=== PATIENT | male | born 1955 | race Caucasian/White ===

== ENCOUNTER 2021-04-19 10:03 | Emergency (ER) | payer MEDICARE, SELFPAY ==
--- NOTE | 2021-04-19 10:10 | ED.URI ---
HPI - URI/Sore Throat General Chief Complaint: Upper Respiratory Infection Stated Complaint: nasal drainage Time Seen by Provider: 04/19/21 10:10 Source: patient and RN notes reviewed History of Present Illness HPI Narrative: Patient is 65-year-old male who presents the urgent care with complaints of nasal drainage that started this morning when he woke up. Patient does not have any other symptoms such as fever, nausea, vomiting. Patient denies of any recent exposures. Patient states he has had a Covid vaccine. Patient has not done anything [id number] for his symptoms. No other acute complaints. 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 No acute distress noted. Patient read the plan of care. Some parts of this dictation were generated by voice recognition software and may contain typographical and/or grammatical inaccuracies. Related Data Home Medications Medication Instructions Recorded Confirmed carvedilol 25 mg PO DAILY 04/19/21 04/19/21 lisinopril-hydrochlorothiazide 20 - 25 tablet PO DAILY 04/19/21 04/19/21 Allergies Allergy/AdvReac Type Severity Reaction Status Date / Time No Known Allergies Allergy Unknown Verified 04/19/21 10:21 Review of Systems Review of Systems: CONSTITUTIONAL: Denies fever, chills, or sweats. EYES: Denies visual changes, redness, or discharge. ENT: Denies congestion, sore throat, or otalgia. Reports of rhinorrhea and postnasal drainage. CARDIOVASCULAR: Denies chest pain, palpitations, or edema. RESPIRATORY: Denies cough or dyspnea. GASTROINTESTINAL: Denies abdominal pain, nausea, vomiting, or diarrhea. GENITOURINARY: Denies dysuria or hematuria. SKIN: Denies rash or itching. MUSCULOSKELETAL: Denies back pain, joint pain, or myalgia. NEUROLOGIC: Denies headache, numbness, or weakness. All other systems reviewed are negative, except as documented in HPI. PMFSH Comments At the time of my signature, I reviewed and agree with the nursing past medical, surgical, social, and family history. There is no relevant family history pertinent to the patient complaint. Exam Narrative: GENERAL: This is a well-nourished, well-developed patient, in no apparent distress. HEAD: normocephalic, atraumatic. EYES: PERRL. Sclera clear/white. Vision is grossly intact. EARS: External ears normal, auditory canals clear and without drainage, TMs normal without perforation. Hearing grossly intact. NOSE: External nose normal with no obvious nasal discharge, nares without redness, clear rhinorrhea. THROAT: Mucous membranes moist, posterior pharynx clear. Mild postnasal drainage NECK: Neck supple CARDIOVASCULAR: Regular rate and rhythm without murmurs, gallops, or rubs. RESPIRATORY: Clear to auscultation. Breath sounds equal bilaterally. No wheezes, rales, or rhonchi. SKIN: warm, intact with no suspicious lesions or rash, good texture and turgor. NEURO: awake, alert, and oriented to person, place and time. There were no obvious focal neurologic abnormalities. EXTREMITIES: No clubbing, cyanosis, or edema. Course Vital Signs Vital signs: Vital Signs Temperature 99.1 F 04/19/21 10:23 Pulse Rate 76 04/19/21 10:23 Respiratory Rate 18 04/19/21 10:23 Blood Pressure 173/87 H 04/19/21 10:23 Pulse Oximetry 99 04/19/21 10:23 Temperature 99.1 F 04/19/21 10:23 Pulse Rate 76 04/19/21 10:23 Respiratory Rate 18 04/19/21 10:23 Blood Pressure 173/87 H 04/19/21 10:23 Pulse Oximetry 99 04/19/21 10:23 Reviewed-patient is informed that they may have pre-hypertension or hypertension based on a blood pressure reading in the department. I recommend the patient call the primary care provider listed on their discharge instructions or a physician of their choice this week to arrange follow-up for further evaluation of possible pre-hypertension or hypertension. MDM - URI/Sore Throat
[2021-04-19 10:23] VITALS: BP 173/87; PULSE 76; RESP 18; TEMP 37.3; O2SAT 99
== END 2021-04-19 10:41 | disposition home or self-care (01) ==
PROVIDERS: Emergency Provider Nurse Practitioner Family; PCP Family Medicine
DX: J30.89 Other allergic rhinitis (principal)
CPT/HCPCS: 99211; G0463

== ENCOUNTER 2022-05-03 01:11 | Day surgery (SDC) | payer MEDICARE, SELFPAY ==
[2022-04-25 09:29] VITALS: BMI 31.1
--- NOTE | 2022-05-03 08:00 | WPDANESEPPF ---
Anes - Initial Pre Proc Eval Procedure: Operation Date: 05/03/22 09:00 Proposed Procedures p Screening Colonoscopy - Orville Montes MD Date/Time: 05/03/22 08:00 Surgeon: Orville Montes MD Pre Op Diagnosis: Hx of colon polyp Patient Data Age: 66 Gender: M Height: 1.93 m Weight: 116 kg Allergies Allergy/AdvReac Type Severity Reaction Status Date / Time No Known Allergies Allergy Unknown Verified 05/03/22 08:12 Home Medications Medication Instructions Recorded Confirmed Type carvedilol 25 mg tablet 25 mg PO DAILY 04/19/21 04/25/22 History lisinopril 20 20 - 25 tablet PO DAILY 04/19/21 04/25/22 History mg-hydrochlorothiazide 25 mg tablet aspirin 81 mg tablet 81 mg PO DAILY 04/25/22 04/25/22 History atorvastatin 10 mg tablet 10 mg PO DAILY 04/25/22 04/25/22 History Patient hx anesthesia problems: none Family hx anesthesia problems: none Results Review: All pre-operative results and documents have been reviewed as part of the pre-operative evaluation. [facility] Past Medical History Medical History (Updated 05/03/22 @ 08:00 by Garry Jones MD) Chronic GERD HTN (hypertension) Hyperlipidemia Obesity Social History Social History Smoking status: Former smoker Substance use type: does not use Living arrangements: with family Spiritual care concerns: No Anes - Eval Final PreProcedure Day of Procedure 05/03/22 08:00 Patient weight: obese Heart: regular rate and rhythm Lungs: clear to auscultation and normal air movement Airway: Mallampati scale class II Neurological: alert and oriented Last oral intake: >/= 8 hours ASA classification: III Emergent: no Anesthetic plan: proceed Anesthesia type and monitoring: general GIVS Results Review: All pre-operative results and documents have been reviewed as part of the pre-operative evaluation. Informed Consent: The patient's anesthetic plan and its attendant risks and benefits were discussed with the patient/family/POA. Questions were solicited and answers provided to the satisfaction of the patient/family/POA.
[2022-05-03 08:13] VITALS: BP 162/83; PULSE 57; RESP 20; TEMP 36.1; O2SAT 97
[2022-05-03] MEDS: LACTATED RINGERS 1,000 ML 150 ML IV CONT (08:21)
--- NOTE | 2022-05-03 08:46 | P.HP_ITS ---
History of Present Illness History of Present Illness Consent: Risks, benefits, and alternatives have been discussed and questions answered. Patient agrees to proceed with procedure. Chief complaint: Hx of colon polyp Narrative: Boo Ortiz is a 66 year old male Presents for screening colonoscopy. Patient was found to have an adenomatous colon polyp by previous colonoscopy 2015. Patient presents today for surveillance colonoscopy. Patient's current weight appetite and bowel movements are normal. Patient denies abdominal pain. He has had no bleeding. Family history is noncontributory. Review of Systems Review of Systems: Review of systems noncontributory. [facility] Past Medical History Medical History (Updated 05/03/22 @ 08:47 by Orville Montes MD) Chronic GERD HTN (hypertension) Hyperlipidemia Obesity Social History Social History Smoking status: Former smoker Substance use type: does not use Living arrangements: with family Spiritual care concerns: No Meds Home Medications and Allergies Home Medications Medication Instructions Recorded Confirmed Type carvedilol 25 mg tablet 25 mg PO DAILY 04/19/21 04/25/22 History lisinopril 20 20 - 25 tablet PO DAILY 04/19/21 04/25/22 History mg-hydrochlorothiazide 25 mg tablet aspirin 81 mg tablet 81 mg PO DAILY 04/25/22 04/25/22 History atorvastatin 10 mg tablet 10 mg PO DAILY 04/25/22 04/25/22 History Allergies Allergy/AdvReac Type Severity Reaction Status Date / Time No Known Allergies Allergy Unknown Verified 05/03/22 08:12 Vital Signs Vital Signs - 24 hr 05/03/22 08:13 Temperature 96.9 F L Pulse Rate 57 L Respiratory Rate 20 Blood Pressure 162/83 H Pulse Oximetry 97 Oxygen Delivery Room Air Exam Narrative: Physical exam reveals patient be alert. Vital signs stable. HEENT exam is unremarkable. Patient is anicteric. Lungs are clear to auscultation and percussion. Heart is without murmur or extra sounds. Abdomen bowel sounds are present soft nontender with no organomegaly. Digital external rectal exam is normal. Assessment and Plan Assessment and plan (1) History of colon polyps: Code(s): Z86.010 - Personal history of colonic polyps Status: Acute Assessment and Plan: Patient has a prior history of adenomatous colon polyp removed from the colon in 2016. Plan for surveillance colonoscopy non consider this at 5 year intervals in the future.
[2022-05-03] MEDS: SIMETHICONE ORAL SUSPENSION 20 MG/0.3 ML 30 ML BOTTLE 0.6 ML IRRIGATION (09:03)
[2022-05-03 09:16] VITALS: BP 106/64; PULSE 60; RESP 27; O2SAT 93
[2022-05-03 09:26] VITALS: BP 115/74; PULSE 56; RESP 23; O2SAT 96
[2022-05-03 09:36] VITALS: BP 124/81; PULSE 48; RESP 15; O2SAT 97
== END 2022-05-03 09:50 | disposition home or self-care (01) ==
PROVIDERS: PCP Family Medicine; Visit Provider Internal Medicine Gastroenterology
PROC: 0DJD8ZZ Inspection of Lower Intestinal Tract, Via Natural or Artificial Opening Endoscopic (ICD-10-PCS; CPT 45378; principal; 2022-05-03 09:00)
DX: Z12.11 Encounter for screening for malignant neoplasm of colon (principal); K64.8 Other hemorrhoids; Z86.010 Personal history of colon polyps; I10 Essential (primary) hypertension; E78.5 Hyperlipidemia, unspecified; Z79.82 Long term (current) use of aspirin; Z87.891 Personal history of nicotine dependence; E66.9 Obesity, unspecified; Z68.30 Body mass index [BMI] 30.0-30.9, adult
CPT/HCPCS: G0105; J2704; J7120

== ENCOUNTER 2023-08-27 01:42 | Day surgery (SDC) | payer MEDICARE, SELFPAY ==
--- NOTE | 2023-08-26 16:07 | PC.NURSE ---
Report to the Outpatient Waiting Room, entrance under the green pavilion located off [facility], at time __0600 on date __08/27/23 . Planned Procedure Time: ___729 . Time changes happen often and if your time is changed the preop area will call you the afternoon before. - You and your visitor will be asked to self-screen and do not enter if you have any COVID symptoms. - A mask is optional within the hospital at this time. Patients may have clear liquids (water, carbonated beverages, clear teas, apple juice) until 3 hours prior to surgery(4:30AM)with a maximum of 20 ounces. - No food from midnight until time of surgery - Infants may have breast milk until 4 hours before surgery, formula 6 hours prior to surgery. - Children will be allowed to drink immediately following surgery. If applicable, please bring a bottle or sippy cup to assist with drinking. Juice, water, soda, and popsicles are readily available. For infants on formula, please bring formula the day of surgery. Pacifiers are allowed. Take the following medications with a SIP of water the morning of surgery: ___CARVEDILOL DO NOT STOP ANY OF YOUR OTHER PRESCRIPTION MEDICATIONS PRIOR TO SURGERY ?EXCEPT THE FOLLOWING Medications to discontinue per physician ___PT STATES LAST DOSE ASPIRIN WAS 08/26/23 Please no make-up, nail albanian, hairspray, perfume, deodorant, or body powder the day of surgery. No jewelry (including any body piercings) or valuables the day of surgery, leave them at home. Please take a shower or bath the night before, or the morning of, surgery with an antibacterial soap. Wear comfortable, loose fitting clothing. Children are encouraged to wear pajamas. - Jewelry must be removed prior to entering the operating room. Rings and piercings that are not removed may be cut off. - The hospital will not accept responsibility for valuables. - Please leave all valuables, including medications, at home the day of surgery. If you are going home after surgery, a licensed fuel truck driver must drive you home. - NO public transportation without another adult if you receive anesthesia. - We recommend that an adult stay with you for 24 hours following discharge. - We also recommend that you do not drive, make important decision, drink alcoholic beverages, or take any drugs that were not prescribed by your health care provider for at least 24 hours after your discharge time. For Pediatric surgeries, we recommend two adults accompany the child home. Follow any additional instructions given to you from your surgeon. If you or anyone in your household have experienced Covid symptoms in the past week, please notify your surgeon or the nurse liaison at the phone number below for possible testing. Telephone instructions given to ___PATIENT and asked if any additional questions and then verbalized understanding. Patient advised to call surgeon office or pre surgery nurse liaison [phone] if any additional questions.
[2023-08-26 16:11] VITALS: BMI 31.2
[2023-08-27] VITALS (7 sets, daily range): BP systolic 99–156; BP diastolic 63–91; PULSE 51–57; RESP 12–19; TEMP 36.1–36.4; O2SAT 98–100
--- NOTE | ~2023-08-27 | XR_ITS ---
EXAMINATION: XR retrograde pyelogram BI DATE: 08/27/2023 08:03 INDICATION: Gross hematuria. TECHNIQUE: 216 intraoperative fluoroscopic views of the abdomen and pelvis were obtained. I was not p resent. Fluoroscopy exposure time was 61 seconds. COMPARISON: None. FINDINGS: The bilateral retrograde pyelograms are normal. IMPRESSION: 1. Normal bilateral retrograde pyelograms. Reviewed, dictated and finalized at location A.
[2023-08-27] MEDS: LACTATED RINGERS 1,000 ML 30 ML IV CONT (06:25)
--- NOTE | 2023-08-27 06:29 | WPDHPUPDATE1 ---
History and Physical Update Update Date/Time: 08/27/23 06:29 History and Physical has been reviewed, including an updated exam of the patient. There are NO changes in the patient's condition. Risks, benefits, and alternatives have been discussed and questions answered. Patient agrees to proceed with procedure.
--- NOTE | 2023-08-27 06:47 | WPDANESEPPF ---
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 Resection Bladder Tumor - Sb Jordan MD Date/Time: 08/27/23 06:47 Surgeon: Sb Jordan MD Pre Op Diagnosis: gross hematuria Patient Data Age: 67 Gender: M Height: 1.91 m Weight: 113.45 kg Allergies Allergy/AdvReac Type Severity Reaction Status Date / Time No Known Allergies Allergy Unknown Verified 08/26/23 15:59 Home Medications Medication Instructions Recorded Confirmed Type aspirin 81 mg tablet 81 mg PO DAILY 04/25/22 08/26/23 History atorvastatin 10 mg tablet 10 mg PO DAILY #90 tabs 04/15/23 08/26/23 Rx carvedilol 25 mg tablet 25 mg PO BID #180 tabs 04/15/23 08/26/23 Rx finasteride 5 mg tablet 5 mg PO DAILY 04/15/23 08/26/23 History lisinopril 20 20 - 25 tablet PO DAILY #90 tabs 04/15/23 08/26/23 Rx mg-hydrochlorothiazide 25 mg tablet mupirocin 2 % topical ointment 1 applic topical BID #22 grams 06/28/23 08/26/23 Rx fluticasone propionate 50 2 spray intranasal BID #48 mL 07/29/23 08/26/23 Rx mcg/actuation nasal spray,suspension (Flonase Allergy Relief) multivitamin 1 tablet PO DAILY 08/26/23 08/26/23 History tamsulosin 0.4 mg capsule 0.4 mg PO HS 08/26/23 08/26/23 History vitamin B complex 1 tablet PO DAILY 08/26/23 08/26/23 History Laboratory Tests 08/27/23 06:38 Sodium Pending Potassium Pending Chloride Pending Carbon Dioxide Pending Anion Gap Pending BUN Pending Creatinine Pending Estim Creat Clear Calc Pending Estimated GFR Pending Glucose Pending Calcium Pending Patient hx anesthesia problems: none Family hx anesthesia problems: none Results Review: All pre-operative results and documents have been reviewed as part of the pre-operative evaluation. [facility] Past Medical History Medical History (Updated 08/27/23 @ 06:50 by Ivan Simon MD) HTN (hypertension) Mixed hyperlipidemia Obesity Family History Family History Father Cancer Hypertension Mother Cancer Hypertension Heart disease Social History Social History (Updated 08/27/23 @ 06:50 by Ivan Simon MD) Smoking packs per day: 1 Smoking cigarettes per day: 20.0 Years smoked: 5 Smoking pack-years: 5.00 Smoking status: Former smoker Tobacco type: cigarettes Smoking end date: 05/20/78 Alcohol intake: never Substance use: never Substance use type: does not use Lack of Transportation: No Lack of Food: Never True Current Housing: I Have Housing Concerned About Future Housing: No Difficulty Paying Gas/Electric Bills: No Difficulty Paying for Meds: No Currently Unemployed: No Education: Associate Degree Difficulty w/ Childcare or Family Care: No Living arrangements: with family Occupation/Education: occupation Gender identity (if verbalized by the patient): Male Sexual Orientation (if Verbalized by the Patient): Straight or Heterosexual Spiritual care concerns: No Anes - Eval Final PreProcedure Day of Procedure 08/27/23 06:47 Patient weight: obese Heart: regular rate and rhythm Lungs: clear to auscultation Airway: Mallampati scale class III Neurological: alert and oriented Last oral intake: >/= 8 hours ASA classification: III Emergent: no Anesthetic plan: proceed Anesthesia type and monitoring: general LMA and standard monitoring Results Review: All pre-operative results and documents have been reviewed as part of the pre-operative evaluation. Informed Consent: The patient's anesthetic plan and its attendant risks and benefits were discussed with the patient/family/POA. Questions were solicited and answers provided to the satisfaction of the patient/family/POA.
[2023-08-27 06:57] LABS: Anion Gap 6 mmol/L (4-12); Blood Urea Nitrogen 19 mg/dL (9-20); Calcium 8.5 mg/dL (8.4-10.2); Carbon Dioxide 23 mmol/L (22-30); Chloride 108 mmol/L (98-107); Estimated CRCL calculation 106 ml/min; Estimated Glomerular Filt Rate > 60; Glucose 162 mg/dL (65-110); Potassium 3.8 mmol/L (3.4-5.0); Sodium 137 mmol/L (137-145)
--- NOTE | 2023-08-27 07:11 | ECG_ITS ---
Measurements Intervals Rogers Rate: 53 P: 17 FL: 154 QRS: 48 QRSD: 128 T: -1 QT: 468 QTc: 452 Interpretive Statements SINUS BRADYCARDIA RIGHT BUNDLE BRANCH BLOCK [120+ ms QRS DURATION, UPRIGHT V1,40+ ms S IN I/aVL/V4/V5/V6) ABNORMAL ECG SEE SCANNED COPY FOR SIGNATURE MTDD
[2023-08-27] MEDS: ceFAZolin 2 GM/D5W 50 ML 2 GM/50 ML BAG IVPB (07:20)
[2023-08-27] MEDS: LIDOCAINE HCL 2% GEL UROJET 10 ML PKG MUCOUS MEM (07:43)
--- NOTE | 2023-08-27 08:08 | W.PM.PROC2 ---
Procedure Note - Detailed Date of Procedure 08/27/23 Pre-op Diagnosis Gross hematuria Post-op Diagnosis Other ( Gross hematuria secondary to bladder tumor) Procedure Performed Cystoscopy, clot evacuation, bilateral retrograde pyelography, TURBT (large, 5 cm) Surgeon Sb Jordan MD Anesthesia General Description of Procedure patient is brought to the operative suite was prepped draped in routine sterile fashion while in dorsal lithotomy position after the uneventful induction of a general LMA anesthetic. Cystoscopy was undertaken 1st with a 21 F rigid cystoscope. He has a moderate clot in his bladder which was evacuated with a Ecelles Carson evacuator. 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 The remainder of the bladder mucosa is normal without hyperemia or evidence of additional neoplasm. It should be noted his prostatic urethra was very modest in size with a prostatic urethral length of approximately 2 cm. Using an angiographic catheter bilateral retrograde pyelograms were obtained. There appeared to be no filling defect or upper tract obstruction. The cystoscope was exchanged for a 24 resectoscope for this neoplasm was resected in its entirety with an attempt made to include detrusor muscle for pathological evaluation of invasion. The base and periphery was cauterized, all with care to avoid injury to the left ureteral orifice. Estimated Blood Loss 5 Drains No Packing No Pathology Yes Complications No immediate complications Condition Stable Disposition PACU
[2023-08-27] MEDS: oxyCODONE HCL (*CRX) 5 MG TAB IR PO (09:35)
[2023-08-27] MEDS: HYOSCYAMINE SULFATE 0.125 MG TABLET PO (10:08)
== END 2023-08-27 10:30 | disposition home or self-care (01) ==
PROVIDERS: Anesthesiology; PCP Family Medicine; Visit Provider Urology
PROC: (CPT 52352; principal; 2023-08-27 07:30)
PROC: 0TBB8ZZ Excision of Bladder, Via Natural or Artificial Opening Endoscopic (ICD-10-PCS; CPT 52235; 2023-08-27 07:30)
DX: C67.2 Malignant neoplasm of lateral wall of bladder (principal); I10 Essential (primary) hypertension; E78.5 Hyperlipidemia, unspecified; E66.9 Obesity, unspecified; Z68.32 Body mass index [BMI] 32.0-32.9, adult; Z87.891 Personal history of nicotine dependence; Z79.82 Long term (current) use of aspirin
CPT/HCPCS: 52235; 36415; 74420; 80048; 88305; 93005; A9270; C1758; C1769; J0690; J1100; J2405; J2704; J3010; J7120; Q9966

== ENCOUNTER 2025-01-05 08:28 | Outpatient (CLI) | payer MEDICARE, SELFPAY ==
--- NOTE | ~2025-01-05 | CT_ITS ---
EXAMINATION: CT abdomen pelvis wo/w con DATE: 01/05/2025 09:15 INDICATION: Neoplasm of bladder. TECHNIQUE: Computed tomography (CT) of the abdomen and pelvis was performed with and without intravenous contrast. The dose-length product was 2970.53 mGy-cm. COMPARISON: Retrograde pyelogram 08/27/2023 FINDINGS: There is a 5 mm noncalcified pulmonary nodule in the right lower lobe. A chest CT is recommended. Liver, spleen, adrenal glands, pancreas, gallbladder are unremarkable. Kidneys are unremarkable. No hydronephrosis. No renal calculi. Abdominal aorta is not aneurysmal. No free fluid in the abdomen. Pelvis: Small fat-containing umbilical hernia. Prostate gland is mildly enlarged. No enlarged lymph nodes in the abdomen or pelvis. Moderate to large amount of stool. No dilated bowel loops. No colitis. No appendicitis. Bones appear osteopenic. Mild multilevel degenerative change in the spine. No bladder calcu li. Mild concentric thickening of the saavedra of the bladder. IMPRESSION: 1. Mild concentric thickening of the saavedra of the mildly distended bladder. No CT evidence for a focal bladder mass. 2. No CT evidence for renal, ureteral or bladder calculi. No hydronephrosis. 3. Prostate gland is mildly enlarged. 4. There is a 5 mm pulmonary nodule in the right lower lobe. A chest CT is recommended. Reviewed, dictated and finalized at location A. IMPRESSION: 1. Mild concentric thickening of the saavedra of the mildly distended bladder. No CT evidence for a focal bladder mass. 2. No CT evidence for renal, ureteral or bladder calculi. No hydronephrosis. 3. Prostate gland is mildly enlarged. 4. There is a 5 mm pulmonary nodule in the right lower lobe. A chest CT is malorie mmended.
--- OUTSIDE RECORDS SUMMARY | 2025-01-05 08:50 | XMS_ITS | Encounter Summary ---
Author Organization [facility] Address [address] [place] [address] Care Team Providers Care Hand Coke Drawer Name Role Phone Justice Caicedo MD Primary Care Provider [phone] Encounter Details Date Type Department Care Team (Late st Contact Info) Description 01/10/2018 Lab Requisition [facility] Care DermPath Lab [address] [place] [id number] Leticia Ceja MD [address] [place] [address] Social History Tobacco Use Types Packs/Day Years Used Date Smoking Tobacco: Never Assessed Sex and Gender Information Value Date Recorded Sex Assigned at Not on file Legal Sex Male 6:52 PM PATENT EXAMINER Gender Identity Not on file Sexual Orientation Not on file documented as of this encounter Plan of Treatment Not on file documented as of this encounter Procedures Procedure Name Priority Date/Time Associated Diagnosis Comments DERMATOPATHOLOGY Routine 01/08/2018 12:0 0 AM CDT documented in this encounter Results * DERMATOPATHOLOGY (01/08/2018 12:00 AM CDT) Case Report Dermatopathology Report Case: [id number] Authorizing Provider: Leticia Ceja MD Collected: 01/08/2018 12:00 AM Pathologist: Laura Briceño MD Received: 01/10/2018 08:37 AM Specimens: A) - Skin, right flank B) - Skin, left suprapubic region 10:50 AM CDT DERMATOPATHOLOGY LABORATORY Final Diagnosis Specimen A. 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 Check margins. B: Neoplasm of uncertain behavior vs squamous cell carcinoma vs genital wart vs seborrheic keratosis. 10:50 AM CDT DERMATOPATHOLOGY LABORATORY Gross Description Specimen A: Received is one formalin filled container labeled with the patient's name and designated right flank. The specimen consists of a punch excision measuring [id number], bisected and submitted in cassette 1. Jar 0. Specimen B: Received is one formalin filled container labeled with the patient's name and designated left suprapubic region. The specimen consists of a shave biopsy measuring [id number]. Jar 0. 10:50 AM T DERMATOPATHOLOGY LABORATORY Microscopic Description Specimen A. SKIN, right flank: This is a junctional nevus. There is melanin pigment in the stratum corneum. There is architectural disorder characterized by a lentiginous proliferation of melanocytes between irregular nests of cells along the dermal-epidermal junction. There is underlying fibroplasia of the papillary dermis. (Junctional Renan's Nevus or Junctional Dysplastic Nevus) This lesion is not present at the sampled margin of the specimen. Specimen B. SKIN, left suprapubic region: There is acanthosis with mild papillomatosis and hyperkeratosis. There are some vacuolated koilocytes present with coarse keratohyalin granules. 10:50 AM CDT DERMATOPATHOLOGY LABORATORY Disclaimer An external and internal positive and negative controls are appropriate for the histochemical, immunohistochemical and immunofluorescence stain(s) in this case (if any), except where stated explicitly. The performance characteristics of the stain(s) cited in this report were developed and its performance characteristic determined by the Dermatopathology Laboratory at [facility]. These tests need not be, and therefore are not, approved by the [place] Food and Drug Administration. The tests are used for clinical purposes. Billing Codes Specimen Charges Stain Charges 50850 2 8 10:50 AM CDT DERMATOPATHOLOGY LABORATORY Embedded Images 8 10:50 AM CDT DERMATOPATHOLOGY LABORATORY Pathology/Cytology TISSUE SPECIMEN FROM SKIN / Unknown 01/08/2018 01/10/2018 8:37 AM CDT Miscellaneous samples (specimen) TISSUE SPECIMEN FROM SKIN / Unknown 01/08/2018 01/10/2018 8:37 AM CDT us Leticia Ceja MD LAB - PATHOLOGY/CYTOLOGY ORDE APARNA Final Result DERMATOPATHOLOGY LABORATORY [facility] - Department of Dermatology [address] [place] [address], [address] Floor Lab [address] [phone] documented in this encounter Visit Diagnoses Not on filedocumented in this encounter Care Teams Hand Coke Drawer Relationship Specialty Start Date End Date Justice Caicedo MD PCP - General 03/12/16 documented as of this encounter
--- OUTSIDE RECORDS SUMMARY | 2025-01-05 08:50 | XMS_ITS | Clinical Summary ---
Author Organization [facility] [employer] Address [address] [place] [address] Care Team Providers Care Faculty Research Physician Name Role Phone Justice Caicedo MD Primary Care Provider [phone] Source Comments [facility] [employer],non-owned Affiliates and Associated Physician Practices is amultiple site organization consisting of ambulatory clinics and hospital sitesin [place], [place], [place] and [place]. This disclosure is being madepursuant to the Care Everywhere program and may not contain all information available regarding this patient. 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 Gender Identity Not on file Sexual Orientation Not on file Plan of Treatment Health Maintenance Due Date Last Done Comments COLOGUARD (AGES 45-75) - COL ON CA SCREENING 1955 COLON MONITORING 1955 COLONOSCOPY - COLON CA SCREENING 1955 CT COLONOGRAPHY - COLON CA SCREENING 1955 Colorectal Cancer Screening 1955 FIT - COLON CA SCREENING 1955 FLEX SIG - COLON CA SCREENING 1955 LIPID TESTING 1955 MEDICARE AWV 12 MONTHS 1955 HEPATITIS C SCREENING 11/16/1973 DTAP/TDAP/TD VACCINES (1 - Tdap) 11/20/1974 PNEUMOCOCCAL VACCINE 50+ (1 of 1 - PCV) 11/20/2005 ZOSTER VACCINE (1 of 2) 11/20/2005 COVID-19 VACCINE (1 - 2023-2 5 season) 2024 DEPRESSION SCREENING 05/20/2024 INFLUENZA VACCINE (#1) 2025 Respiratory Syncytial Virus (RSV) Vaccine Pt: or over 60 yrs (1 - 1-dose 75+ series) 11/20/2030 HEPATITIS B VACCINE Aged Out No longe r eligible based on patient's age to complete this topic HIB VACCINE Aged Out No longer eligi ble based on patient's age to complete this topic HPV VACCINE Aged Out No longer eligi ble based on patient's age to complete this topic MENINGOCOCCAL (Group B) VACC INE SHARED DECISION-MAKING Aged Out No longer eligibl e based on patient's age to complete this topic MENINGOCOCCAL GROUPS A/C/Y/W VACCINE Aged Out No longer eligible b ased on patient's age to complete this topic Insurance [facility] MEDICARE COUN[employer] LIFE INSURANCE MEDICARE SUPP MEDICARE Member Subscriber Plan / Payer (Ef fective for All Dates) Name:Boo Ortiz Member ID:[id number] Relation to Subscriber:Self Name:Boo Ortiz Subscriber ID:[id number] Payer ID:Not on file Group ID:Not on file Type:Medicare Address: [address] INSURANCE MEDICARE SUPP MEDICARE Member Subscriber Plan / Payer (Ef fective for All Dates) Name:Boo Ortiz R Member ID:[id number] Relation to Subscriber:Self Name:Boo Ortiz Subscriber ID:[id number] Payer ID:Not on file Group ID:Not on file Type:Medicare Address: [address] INSURANCE MEDICARE SUPP Care Teams Faculty Research Physician Relationship Specialty Start Date End Date Justice Caicedo MD PCP - General 03/12/16
[2025-01-05 08:56] LABS: Estimated Glomerular Filt Rate > 60
== END 2025-01-05 08:29 | disposition home or self-care (01) ==
PROVIDERS: PCP Family Medicine; Visit Provider Urology
DX: C67.8 Malignant neoplasm of overlapping sites of bladder (principal); N40.0 Benign prostatic hyperplasia without lower urinary tract symptoms; R91.1 Solitary pulmonary nodule
CPT/HCPCS: 74178; Q9967

== ENCOUNTER 2025-01-13 07:26 | Outpatient (CLI) | payer MEDICARE, SELFPAY ==
--- NOTE | ~2025-01-13 | CT_ITS ---
EXAMINATION: CT diagnostic chest wo con DATE: 01/13/2025 07:36 INDICATION: Solitary pulmonary nodule TECHNIQUE: Computed tomography (CT) of the chest was performed without intravenous contrast. The dose-length product was 219.16 mGy-cm. COMPARISON: CT abdomen and pelvis 01/05/2025 FINDINGS: No enlarged central hilar lymph nodes. Heart is not enlarged. There are a few coronary artery calcifications. Visualized upper abdomen is similar to the study from 01/05/2025. Thoracic aorta is not aneurysmal. Tracheobronchial tree is patent. No pneumothorax. No pleural effusion. No focal pulmonary consolidation. There is a 5 mm noncalcified pulmonary nodule in the right lower lobe. 3 mm pulmonary density in the left lung apex. There is a 4 mm subpleural nodule in the right middle lobe. There is a 3 mm pulmonary nodule in the right lower lobe. There are a few small reticular opacities in the lower lungs likely atelectasis or scarring. Bones appear osteopenic. Mild to moderate multilevel degenerative change in the visualized spine. IMPRESSION: 1. There are four less than 5 mm pulmonary nodules. A follow-up chest CT in 6 months recommended. Reviewed, dictated and finalized at location Q. IMPRESSION: 1. There are four less than 5 mm pulmonary nodules. A follow-up chest CT in 6 m [facility] recommended.
--- OUTSIDE RECORDS SUMMARY | 2025-01-13 07:30 | XMS_ITS | Encounter Summary ---
Author Organization [facility] Address [address] [place] [address] Care Team Providers Care Manager Of Regulatory Affairs Name Role Phone Justice Caicedo MD Primary Care Provider [phone] Encounter Details Date Type Department Care Team (Late st Contact Info) Description 01/10/2018 Lab Requisition [facility] [address] [place] [id number] Leticia Ceja MD [address] [place] [address] Social History Tobacco Use Types Packs/Day Years Used Date Smoking Tobacco: Never Assessed Sex and Gender Information Value Date Recorded Sex Assigned at Not on file 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 Jar 0. Specimen B: Received is one formalin filled container labeled with the patient's name and designated left suprapubic region. The specimen consists of a shave biopsy measuring [id number]. Jar 0. 10:50 AM T DERMATOPATHOLOGY LABORATORY [...] characteristic determined by the Dermatopathology Laboratory at [facility]. These tests need not be, and therefore are not, approved by the [place] Food and Drug Administration. The tests are used for clinical purposes. Billing Codes Specimen Charges Stain Charges 51500 2 8 10:50 AM CDT DERMATOPATHOLOGY LABORATORY Embedded Images 8 10:50 AM CDT DERMATOPATHOLOGY LABORATORY Pathology/Cytology TISSUE SPECIMEN FROM SKIN / Unknown 01/08/2018 01/10/2018 8:37 AM CDT Miscellaneous samples (specimen) TISSUE SPECIMEN FROM SKIN / Unknown 01/08/2018 01/10/2018 8:37 AM CDT us Leticia Ceja MD LAB - PATHOLOGY/CYTOLOGY ORDE APARNA Final Result DERMATOPATHOLOGY LABORATORY [facility] - Department of Dermatology [address] [place] [address], 5th Floor Lab [address] [phone] documented in this encounter Visit Diagnoses Not on filedocumented in this encounter Care Teams Manager Of Regulatory Affairs Relationship Specialty Start Date End Date Justice Caicedo MD PCP - General 03/12/16 documented as of this encounter
--- OUTSIDE RECORDS SUMMARY | 2025-01-13 07:30 | XMS_ITS | Clinical Summary ---
Author Organization [facility] [employer] Address [address] [place] [address] Care Team Providers Care Industrial Economics Professor Name Role Phone Justice Caicedo MD Primary Care Provider [phone] Source Comments [facility] [employer],non-owned Affiliates and Associated Physician Practices is amultiple site organization consisting of ambulatory clinics and hospital sitesin [place], [place], [place] and [place]. This disclosure is being madepursuant to the Care Everywhere program and may not contain all information available regarding this patient. 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 Gender Identity Not on file Sexual Orientation [...] patient's age to complete this topic Insurance [facility] MEDICARE COUNTRY LIFE INSURANCE MEDICARE SUPP MEDICARE Member Subscriber Plan / Payer (Ef fective for All Dates) Name:Boo Ortiz Member ID:[id number] Relation to Subscriber:Self Name:Boo Ortiz Subscriber ID:[id number] Payer ID:Not on file Group ID:Not on file Type:Medicare Address: [address] INSURANCE MEDICARE SUPP MEDICARE Member Subscriber Plan / Payer (Ef fective for All Dates) Name:Boo Ortiz R Member ID:[id number] Relation to Subscriber:Self Name:Boo Ortiz Subscriber ID:[id number] Payer ID:Not on file Group ID:Not on file Type:Medicare Address: [address] INSURANCE MEDICARE SUPP Care Teams Industrial Economics Professor Relationship Specialty Start Date End Date Justice Caicedo MD PCP - General 03/12/16
== END 2025-01-13 07:27 | disposition home or self-care (01) ==
PROVIDERS: PCP Family Medicine; Visit Provider Family Medicine
DX: R91.1 Solitary pulmonary nodule (principal); R91.8 Other nonspecific abnormal finding of lung field
CPT/HCPCS: 71250